=== PATIENT | male | born 1970 | race Caucasian/White ===

== ENCOUNTER 2017-09-13 07:54 | Emergency (ER) | payer MEDICAID ==
[~2017-09-13] VITALS: Ht 1653.8 cm; Wt 81.0 kg
[~2017-09-13 07:54] MED LIST: DIPH-423 PO; LURA120T PO; PRAZ5CAP PO; SERT25TA PO
[2017-09-13 08:47] LABS: BASOPHILS # (AUTO) 0.1 X10'3 (0-0.2); BASOPHILS % (AUTO) 0.8 % (0-1); EOSINOPHILS % (AUTO) 0.1 % (0-6); HEMATOCRIT 45.6 % (42.0-52.0); HEMOGLOBIN 15.8 g/dl (14.0-17.9); LYMPHOCYTES # (AUTO) 1.6 X10'3 (1.1-4.8); LYMPHOCYTES % (AUTO) 13.1 % (21-51); MEAN CORPUSCULAR HEMOGLOBIN 30.3 PG (27.0-31.0); MEAN CORPUSCULAR HGB CONC 34.6 % (33.0-36.5); MEAN CORPUSCULAR VOLUME 87.6 FL (78-98); MEAN PLATELET VOLUME 7.9 FL (7.4-10.4); MONOCYTES # (AUTO) 0.9 X10'3 (0-0.9); MONOCYTES % (AUTO) 7.7 % (2-12); NEUTROPHILS # (AUTO) 9.4 X10'3 (1.8-7.7); NEUTROPHILS % (AUTO) 78.3 % (42-75); PLATELET COUNT 354 X10'3 (140-440); RED BLOOD COUNT 5.21 X10'6 (4.70-6.10); RED CELL DISTRIBUTION WIDTH 13.9 % (11.5-14.5)
[2017-09-13 09:13] LABS: ALANINE AMINOTRANSFERASE 400 U/L (12-78); ALBUMIN 4.6 G/DL (3.4-5.0); ALBUMIN/GLOBULIN RATIO 1.1 (1.1-1.5); ALKALINE PHOSPHATASE 75 IU/L (46-116); ANION GAP 16 (8-16); ASPARTATE AMINO TRANSFERASE 1063 U/L (10-37); BILIRUBIN,TOTAL 2.2 MG/DL (0.1-1.0); BLOOD UREA NITROGEN 37 MG/DL (7-18); BUN/CREATININE RATIO 18.3 (5.4-32.0); CALCIUM 9.4 MG/DL (8.5-10.1); CHLORIDE 99 MMOL/L (99-107); CREATININE 2.02 MG/DL (0.60-1.10); ETHANOL < 0.010 GM/DL (0.0-0.010); GLUCOSE 111 MG/DL (70-104); POTASSIUM 3.7 MMOL/L (3.5-5.1); SODIUM 138 MMOL/L (135-145); TOTAL CARBON DIOXIDE 23.1 MMOL/L (24-32); TOTAL PROTEIN 8.9 G/DL (6.4-8.2); eGFR 36 ML/MIN
[2017-09-13 09:34] LABS: URINE AMPHETAMINE SCREEN POSITIVE (Neg); URINE BARBITUATE SCREEN NEGATIVE (Neg); URINE BENZODIAZEPINES SCREEN NEGATIVE (Neg); URINE CANNABINOID SCREEN NEGATIVE (Neg); URINE COCAINE SCREEN NEGATIVE (Neg); URINE METHADONE SCREEN NEGATIVE (Neg); URINE OPIATE SCREEN NEGATIVE (Neg); URINE PHENCYCLIDINE SCREEN NEGATIVE (Neg)
[2017-09-13] MEDS ORDERED: PRAZ1CAP5 PO (11:11)
[2017-09-13] MEDS: aspirin 81mg tab.chew PO PRN (13:29)
[2017-09-13] MEDS: olanzapine 10mg tablet PO SCH ×2 (13:30→19:46)
[2017-09-13] MEDS ORDERED: normal saline 1000ML IV soln IVB ONE (23:15)
[2017-09-14 02:25] LABS: BASOPHILS % (AUTO) 0.7 % (0-1); EOSINOPHILS # (AUTO) 0.1 X10'3 (0-0.9); HEMATOCRIT 37.3 % (42.0-52.0); HEMOGLOBIN 12.8 g/dl (14.0-17.9); LYMPHOCYTES # (AUTO) 1.6 X10'3 (1.1-4.8); LYMPHOCYTES % (AUTO) 32.8 % (21-51); MEAN CORPUSCULAR HEMOGLOBIN 30.4 PG (27.0-31.0); MEAN CORPUSCULAR HGB CONC 34.4 % (33.0-36.5); MEAN CORPUSCULAR VOLUME 88.5 FL (78-98); MEAN PLATELET VOLUME 7.8 FL (7.4-10.4); MONOCYTES # (AUTO) 0.4 X10'3 (0-0.9); MONOCYTES % (AUTO) 7.8 % (2-12); NEUTROPHILS # (AUTO) 2.7 X10'3 (1.8-7.7); NEUTROPHILS % (AUTO) 56.7 % (42-75); PLATELET COUNT 227 X10'3 (140-440); RED BLOOD COUNT 4.21 X10'6 (4.70-6.10); WHITE BLOOD COUNT 4.7 X10'3 (4.5-11.0)
[2017-09-14 02:37] LABS: ALANINE AMINOTRANSFERASE 276 U/L (12-78); ALKALINE PHOSPHATASE 50 IU/L (46-116); ANION GAP 7 (8-16); ASPARTATE AMINO TRANSFERASE 504 U/L (10-37); BILIRUBIN,TOTAL 1.1 MG/DL (0.1-1.0); BLOOD UREA NITROGEN 25 MG/DL (7-18); BUN/CREATININE RATIO 29.1 (5.4-32.0); CALCIUM 7.5 MG/DL (8.5-10.1); CHLORIDE 107 MMOL/L (99-107); CREATININE 0.86 MG/DL (0.60-1.10); GLUCOSE 103 MG/DL (70-104); POTASSIUM 3.3 MMOL/L (3.5-5.1); SODIUM 139 MMOL/L (135-145); TOTAL CARBON DIOXIDE 25.3 MMOL/L (24-32); TOTAL PROTEIN 6.1 G/DL (6.4-8.2); eGFR > 90 ML/MIN
[2017-09-14 02:47] LABS: ETHANOL < 0.010 GM/DL (0.0-0.010)
[2017-09-14] MEDS ORDERED: PRAZ1CAP5 PO (02:47)
[2017-09-14 02:52] LABS: ACETAMINOPHEN < 2.0 UG/ML (10-30)
[2017-09-14 08:15] LABS: ALANINE AMINOTRANSFERASE 282 U/L (12-78); ALBUMIN 3.1 G/DL (3.4-5.0); ALBUMIN/GLOBULIN RATIO 0.9 (1.1-1.5); ALKALINE PHOSPHATASE 59 IU/L (46-116); ASPARTATE AMINO TRANSFERASE 475 U/L (10-37); BILIRUBIN,DIRECT 0.2 MG/DL (0-0.3); BILIRUBIN,TOTAL 1.3 MG/DL (0.1-1.0); TOTAL PROTEIN 6.4 G/DL (6.4-8.2)
[2017-09-14] MEDS: olanzapine 10mg tablet PO SCH ×2 (08:51→20:23)
[2017-09-14 09:54] LABS: CLARITY,URINE CLEAR (Clear); COLOR,URINE YELLOW (Yellow); GLUCOSE, URINE NEGATIVE (Neg); KETONES,URINE 15 mg/dl (Neg); LEUKOCYTE ESTERASE ,URINE NEGATIVE (Neg); NITRITES, URINE NEGATIVE (Neg); OCCULT BLOOD,URINE MODERATE (Neg); PROTEIN,URINE 30 mg/dl (Neg); UROBILINOGEN,URINE 0.2 E.U/dL (0.2-1.0)
[2017-09-14 10:07] LABS: UA COLLECTION TYPE CLN CATCH MIDSTREAM
[2017-09-14 10:10] LABS: URINE AMPHETAMINE SCREEN POSITIVE (Neg); URINE BARBITUATE SCREEN NEGATIVE (Neg); URINE BENZODIAZEPINES SCREEN NEGATIVE (Neg); URINE CANNABINOID SCREEN NEGATIVE (Neg); URINE COCAINE SCREEN NEGATIVE (Neg); URINE METHADONE SCREEN NEGATIVE (Neg); URINE OPIATE SCREEN NEGATIVE (Neg); URINE PHENCYCLIDINE SCREEN NEGATIVE (Neg)
[2017-09-14 10:12] LABS: BACTERIA,URINE NONE SEEN /HPF (Neg); MUCUS STRANDS FEW /LPF (Neg); RBC,URINE NONE SEEN /HPF (0-2); SQUAMOUS EPITHELIAL CELL,UR NONE SEEN /LPF (FEW); WBC,URINE NONE SEEN /HPF (0-4)
[2017-09-14] MEDS ORDERED: prazosin 1mg capsule PO SCH (21:00)
[2017-09-15] MEDS: olanzapine 10mg tablet PO SCH (09:20)
[2017-09-15] MEDS: aspirin 81mg tab.chew PO PRN (17:21)
[2017-09-15 17:37] VITALS: BP 123/84
== END 2017-09-15 20:03 ==
LOC: ER 07:55
DX: F31.9 Bipolar disorder, unspecified (principal); F20.9 Schizophrenia, unspecified; R45.851 Suicidal ideations; R44.0 Auditory hallucinations; R51 Headache; Z59.0 Homelessness; Z56.0 Unemployment, unspecified; Z88.8 Allergy status to other drugs, medicaments and biological substances; Z88.5 Allergy status to narcotic agent; Z79.899 Other long term (current) drug therapy
CPT/HCPCS: 36415; 70450; 80053; 80076; 80305; 80320; 80329; 81001; 84443; 85025; 99285; J3490

== ENCOUNTER 2018-02-26 12:59 | Emergency (ER) | payer MEDICAID ==
[~2018-02-26] VITALS: Ht 165.1 cm; Wt 77.3 kg
[~2018-02-26 12:59] MED LIST changes: -DIPH-423 PO; -LURA120T PO; +PRAZ1CAP5 PO; -PRAZ5CAP PO; -SERT25TA PO
[2018-02-26 13:36] VITALS: BP 137/89
[2018-02-26] MEDS ORDERED: LIDOcaine 1.5% w/epinephrine 1:200,000 5ml ampul IJ ONE (16:00)
[2018-02-26] MEDS ORDERED: TETanus/Pertussis (Acell)/Diphther VAC/PF (Tdap-Adult) 0.5ml syringe IM ONE (16:00)
[2018-02-26] MEDS ORDERED: LIDOcaine 1% w/epiNEPHrine 1:200,000 30ml vial IJ ONE (16:05)
== END 2018-02-26 17:05 | disposition left against medical advice (07) ==
LOC: ER 12:59
DX: S61.411A Laceration without foreign body of right hand, initial encounter (principal); Z53.21 Procedure and treatment not carried out due to patient leaving prior to being seen by health care provider; W25.XXXA Contact with sharp glass, initial encounter; Y93.89 Activity, other specified; Y92.89 Other specified places as the place of occurrence of the external cause; Y99.9 Unspecified external cause status
CPT/HCPCS: 73130; J3490

== ENCOUNTER 2018-07-02 16:38 | Emergency (ER) | payer MEDICAID, OTHER ==
[~2018-07-02] VITALS: Ht 162.6 cm; Wt 75.0 kg
[2018-07-02 17:14] LABS: CLARITY,URINE SLIGHTLY CLOUDY (Clear); GLUCOSE, URINE NEGATIVE (Neg); KETONES,URINE 15 mg/dl (Neg); LEUKOCYTE ESTERASE ,URINE NEGATIVE (Neg); NITRITES, URINE NEGATIVE (Neg); OCCULT BLOOD,URINE NEGATIVE (Neg); PH,URINE 5.5 (4.8-8.0); PROTEIN,URINE 30 mg/dl (Neg)
--- NOTE | 2018-07-02 17:15 | NUR ---
Patient brought back by [employer] in handcuffs. Found outdoors wandering, stating he wanted to kill himself because he was "a bad person." Taken out of handcuffs, dressed himself in green gowns, and went to bed. Unable to participate in the admission process at this time due to psychosis and paranoia.
[2018-07-02 17:24] LABS: URINE AMPHETAMINE SCREEN POSITIVE (Neg); URINE BARBITUATE SCREEN NEGATIVE (Neg); URINE BENZODIAZEPINES SCREEN NEGATIVE (Neg); URINE CANNABINOID SCREEN NEGATIVE (Neg); URINE COCAINE SCREEN NEGATIVE (Neg); URINE METHADONE SCREEN NEGATIVE (Neg); URINE OPIATE SCREEN NEGATIVE (Neg); URINE PHENCYCLIDINE SCREEN NEGATIVE (Neg)
[2018-07-02 17:26] LABS: COLOR,URINE DARK YELLOW (Yellow); UA COLLECTION TYPE VOIDED
[2018-07-02 17:29] LABS: WBC,URINE 0-4 /HPF (0-4)
[2018-07-02 17:38] LABS: BASOPHILS # (AUTO) 0.1 X10'3 (0-0.2); EOSINOPHILS # (AUTO) 0.1 X10'3 (0-0.9); EOSINOPHILS % (AUTO) 2.1 % (0-6); HEMATOCRIT 41.6 % (42.0-52.0); HEMOGLOBIN 14.5 g/dl (14.0-17.9); LYMPHOCYTES # (AUTO) 1.4 X10'3 (1.1-4.8); LYMPHOCYTES % (AUTO) 21.9 % (21-51); MEAN CORPUSCULAR HEMOGLOBIN 30.1 PG (27.0-31.0); MEAN CORPUSCULAR HGB CONC 34.9 g/dL (33.0-36.5); MEAN CORPUSCULAR VOLUME 86.4 FL (78-98); MEAN PLATELET VOLUME 7.3 FL (7.4-10.4); MONOCYTES # (AUTO) 0.6 X10'3 (0-0.9); MONOCYTES % (AUTO) 9.5 % (2-12); NEUTROPHILS # (AUTO) 4.1 X10'3 (1.8-7.7); NEUTROPHILS % (AUTO) 65.5 % (42-75); PLATELET COUNT 378 X10'3 (140-440); RED BLOOD COUNT 4.81 X10'6 (4.70-6.10); RED CELL DISTRIBUTION WIDTH 13.2 % (11.5-14.5); WHITE BLOOD COUNT 6.3 X10'3 (4.5-11.0)
[2018-07-02 17:55] LABS: ALANINE AMINOTRANSFERASE 68 U/L (12-78); ALBUMIN 4.1 G/DL (3.4-5.0); ALBUMIN/GLOBULIN RATIO 1.1 (1.1-1.5); ALKALINE PHOSPHATASE 61 IU/L (46-116); ANION GAP 9 (8-16); ASPARTATE AMINO TRANSFERASE 26 U/L (10-37); BILIRUBIN,TOTAL 0.9 MG/DL (0.1-1.0); BLOOD UREA NITROGEN 15 MG/DL (7-18); BUN/CREATININE RATIO 14.3 (5.4-32.0); CALCIUM 9.1 MG/DL (8.5-10.1); CHLORIDE 104 MMOL/L (99-107); CREATININE 1.05 MG/DL (0.60-1.10); GLUCOSE 117 MG/DL (70-104); SODIUM 141 MMOL/L (135-145); TOTAL CARBON DIOXIDE 28.3 MMOL/L (24-32); TOTAL PROTEIN 7.7 G/DL (6.4-8.2); eGFR 76 ML/MIN
[2018-07-02 17:59] LABS: AMORPHOUS URATES 3+; BACTERIA,URINE NONE SEEN /HPF (Neg); MUCUS STRANDS MANY /LPF (Neg); RBC,URINE NONE SEEN /HPF (0-2); SQUAMOUS EPITHELIAL CELL,UR FEW /LPF (FEW)
[2018-07-02] MEDS ORDERED: potassium Cl oral solution 20 MEQ/15 ML PO ONE (18:00)
--- NOTE | 2018-07-02 18:00 | NUR ---
CRITICAL LAB REPORTED. K+ = 3.0. Oncoming nurse reported lab to Carla Howard, will put in orders.
[2018-07-02 18:02] LABS: ETHANOL < 0.010 GM/DL (0.0-0.010)
--- NOTE | 2018-07-02 19:23 | NUR ---
The patient is sitting on his bed talking to himself. He is disorganized and confused. He really is not endorsing suicidal intent. He mumbles and is very difficult to understand. Per [employer] they picked him up after he was acting erratic, altered and being uncooperative. His urine tox screen was postive for amphetamines. [facility] has seen the patient but because he is currently under the influence and difficult to fully assess. They will reevaluate him in the morning when his mentation is clearer.
--- NOTE | 2018-07-02 21:40 | NUR ---
telepsych consult made
--- NOTE | 2018-07-02 23:24 | NUR ---
The patient appears to be sleeping. Telepsych is still pending
--- NOTE | 2018-07-03 01:32 | NUR ---
Report to telepsychiatrist. THe patient is very drowsy and difficult to arouse
[2018-07-03] MEDS ORDERED: OLANZapine **IM** 10 mg inj. IM PRN (02:30)
[2018-07-03] MEDS ORDERED: OLANZapine 2.5MG tablet PO PRN (02:30)
--- NOTE | 2018-07-03 03:10 | NUR ---
The patient appears to be asleep
--- NOTE | 2018-07-03 05:20 | NUR ---
The patient appears to be asleep
[2018-07-03 05:49] VITALS: BP 132/80
--- NOTE | 2018-07-03 12:12 | NUR ---
PT IS IN BED ON LEFT SIDE, EYES CLOSED, REGULAR BREATHING, NO S/S OF AGITATION OBERVED, A
--- NOTE | 2018-07-03 13:10 | NUR ---
PT IS BEING DISCHARGED. NO S/S OF AGITATION, HE IS GETTING DRESSED
== END 2018-07-03 13:29 ==
LOC: ER 16:39
DX: F20.9 Schizophrenia, unspecified (principal); F29 Unspecified psychosis not due to a substance or known physiological condition; F31.9 Bipolar disorder, unspecified; F15.10 Other stimulant abuse, uncomplicated; Z59.0 Homelessness; Z56.0 Unemployment, unspecified; Z88.8 Allergy status to other drugs, medicaments and biological substances; Z88.5 Allergy status to narcotic agent; Z79.899 Other long term (current) drug therapy
CPT/HCPCS: 36415; 80053; 80305; 80320; 81001; 84443; 85025; 99285

== ENCOUNTER 2020-10-11 19:28 | Emergency (ER) | payer MEDICAID ==
[~2020-10-11] VITALS: Ht 162.6 cm; Wt 90.0 kg
[~2020-10-11 19:28] MED LIST changes: +AMLO2.5T5 PO; +ATOR20TA66 PO; +COR3.125T PO; +DIPH-1055 PO; +DIVA125T9 PO; +FAMO20TA10 PO; +ILOP6TAB2 PO; +ISOS30TA84 PO; +LISI40TA13 PO; +PANT40TA54 PO; +QUET400T13 PO; +QUET50TA79 PO; +folic acid tablet PO; +thiamine tablet PO
[2020-10-11] MEDS ORDERED: aspirin 81mg tab.chew PO ONE (19:35)
[2020-10-11] MEDS ORDERED: magnesium 2GM in 50ml NS 50 ML IV ONE (19:35)
[2020-10-11] MEDS ORDERED: normal saline 1000ML IV soln IVB ONE ×2 (19:35→20:55)
[2020-10-11 19:49] LABS: BASOPHILS % (AUTO) 0.3 % (0-1); EOSINOPHILS % (AUTO) 0 % (0-6); HEMATOCRIT 43.6 % (42.0-52.0); HEMOGLOBIN 14.7 g/dl (14.0-17.9); LYMPHOCYTES % (AUTO) 9.8 % (21-51); MEAN CORPUSCULAR HEMOGLOBIN 28.9 PG (27.0-31.0); MEAN CORPUSCULAR HGB CONC 33.8 g/dL (33.0-36.5); MEAN CORPUSCULAR VOLUME 85.4 FL (78-98); MEAN PLATELET VOLUME 6.9 FL (7.4-10.4); MONOCYTES # (AUTO) 0.7 X10'3 (0-0.9); NEUTROPHILS # (AUTO) 8.7 X10'3 (1.8-7.7); NEUTROPHILS % (AUTO) 82.9 % (42-75); PLATELET COUNT 343 X10'3 (140-440); RED CELL DISTRIBUTION WIDTH 14.5 % (11.5-14.5); WHITE BLOOD COUNT 10.5 X10'3 (4.5-11.0)
--- NOTE | 2020-10-11 19:57 | NUR ---
2723 written for DTS by police per EMS. Urmila Turner [phone], ok to give any medical information to her. Pt reports he lives with his neice and she is aware he is here tonight. States he wanted to kill himself and he took a pill from a friend , but does not know what it was, and he then smoked "a hot rail". 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 Drinks etoh daily. last had beer this afternoon. Has extensive psych and SA history and inpatient psych admissions. Reports severely depressed recently. States CP and SOB increasing over the past week but tonight symptoms severe after taking the pill and the hot rail. Seen by [facility] and goes to [facility] "Dr. Mathews" for PCP. Has current meds he is supposed to be taking , but does not know them. States his sister would know. States he still wants to and he is severely depressed.
[2020-10-11 20:05] LABS: ALANINE AMINOTRANSFERASE 33 U/L (12-78); ALKALINE PHOSPHATASE 108 IU/L (46-116); ANION GAP 14 (8-16); ASPARTATE AMINO TRANSFERASE 19 U/L (10-37); BILIRUBIN,TOTAL 1.2 MG/DL (0.1-1.0); BLOOD UREA NITROGEN 17 MG/DL (7-18); BUN/CREATININE RATIO 13.1 (5.4-32.0); CALCIUM 8.7 MG/DL (8.5-10.1); CHLORIDE 106 MMOL/L (99-107); GLUCOSE 167 MG/DL (70-104); POTASSIUM 3.4 MMOL/L (3.5-5.1); SODIUM 145 MMOL/L (135-145); TOTAL CARBON DIOXIDE 25.1 MMOL/L (24-32); TOTAL PROTEIN 8.1 G/DL (6.4-8.2); eGFR 59 ML/MIN
[2020-10-11 20:12] LABS: LIPASE 52 U/L (73-393)
[2020-10-11 20:13] LABS: ETHANOL < 0.010 GM/DL (0.0-0.010)
[2020-10-11] MEDS ORDERED: LORazepam 2 mg/ml vial IV ONE ×2 (20:55→23:00)
[2020-10-11 21:33] LABS: CLARITY,URINE CLEAR (Clear); COLOR,URINE YELLOW (Yellow); GLUCOSE, URINE 100 mg/dl (Neg); KETONES,URINE NEGATIVE (Neg); LEUKOCYTE ESTERASE ,URINE NEGATIVE (Neg); NITRITES, URINE NEGATIVE (Neg); OCCULT BLOOD,URINE TRACE-INTACT (Neg); PROTEIN,URINE 100 mg/dl (Neg); UROBILINOGEN,URINE 0.2 E.U/dL (0.2-1.0)
[2020-10-11 21:39] LABS: URINE AMPHETAMINE SCREEN POSITIVE (Neg); URINE BARBITUATE SCREEN NEGATIVE (Neg); URINE BENZODIAZEPINES SCREEN NEGATIVE (Neg); URINE CANNABINOID SCREEN NEGATIVE (Neg); URINE COCAINE SCREEN NEGATIVE (Neg); URINE METHADONE SCREEN NEGATIVE (Neg); URINE OPIATE SCREEN NEGATIVE (Neg); URINE PHENCYCLIDINE SCREEN NEGATIVE (Neg)
--- NOTE | 2020-10-11 21:42 | NUR ---
given ativan 2 mg iv and 3rd liter ns bolus infusing. hr 130's. Pt paranoid and thinks many people walking by his room , especially in uniform , are "following me" and "trying to kill me". "i want to kill myself, i dont want them to do it". Pt assured that he is safe here and encouraged to lay on the gurney and try to calm down. Pt called his sister, Urmila, and I also spoke with her and updated he-r on his plan of care. She provided me with her daughters number (his neice whom he lievs with bruno -[phone]) and she will be able to provide me with the pts current list of medications. Pt showed me his cardiac stent card showing he had proximal LAD stent placed.
[2020-10-11 21:44] LABS: UA COLLECTION TYPE VOIDED
[2020-10-11 21:47] LABS: BACTERIA,URINE NONE SEEN /HPF (Neg); MUCUS STRANDS FEW /LPF (Neg); RBC,URINE NONE SEEN /HPF (0-2); SQUAMOUS EPITHELIAL CELL,UR FEW /LPF (FEW); WBC,URINE NONE SEEN /HPF (0-4)
--- NOTE | 2020-10-11 21:53 | NUR ---
Call placed to Whitney valle, and message left for her to call with med list.
[2020-10-11] MEDS ORDERED: CLOP75TA33 PO (22:11)
[2020-10-11] MEDS ORDERED: ASPI-107 PO (22:11)
[2020-10-11] MEDS ORDERED: LAMO150T6 PO (22:11)
[2020-10-11] MEDS ORDERED: ISOS60TA71 PO (22:11)
[2020-10-11] MEDS ORDERED: UNABLE TO OBTAIN (22:15)
--- NOTE | 2020-10-11 22:39 | NUR ---
CHANGED INTO GREEN SCRUBS. [facility] VIRUS SWAB PENDING.
--- NOTE | 2020-10-11 22:57 | NUR ---
DR. HAAS UPDATED THAT PTS HR REMAINS 130-140. PT WAS TO BE MOVED OVER THE OVERFLOW AREA. VERBAL RECEIVED FOR ATIVAN 1 MG IV X1 NOW. AND TO WAIT UNTIL HR IN AT LEAST 120'S BEFORE MOVING OVER.
--- NOTE | 2020-10-11 23:30 | NUR ---
The patient to bed 23 in the ER overflow. Per Dr. Roberts serial trops and ecgs can be cancelled
--- NOTE | 2020-10-11 23:34 | NUR ---
Packet to [facility]
--- NOTE | 2020-10-11 23:52 | NUR ---
The patient is disorganized but is resting on his bed
--- NOTE | 2020-10-12 00:02 | NUR ---
Pt broke his own reading glasses while he was dreaming
--- NOTE | 2020-10-12 01:23 | NUR ---
The patient appears to be sleeping but restlessly
--- NOTE | 2020-10-12 03:13 | NUR ---
THe patient appears to be sleeping
--- NOTE | 2020-10-12 04:57 | NUR ---
The patient appears to be sleeping
[2020-10-12] MEDS ORDERED: LORazepam 1 MG tablet PO ONE (06:30)
[2020-10-12] MEDS ORDERED: ibuprofen tablet 400 MG TABLET PO ONE (06:30)
--- NOTE | 2020-10-12 06:54 | NUR ---
pt complaining of back pain, requested aspirin and something for anxiety. pt given 1 mg ativan and 400 mg motrin. pt up to use restroom. pt requires stand by assist due to unsteady gait.
[2020-10-12] MEDS ORDERED: DIAZ2TAB PO (08:28)
[2020-10-12] MEDS ORDERED: QUET-1 PO (08:29)
[2020-10-12] MEDS ORDERED: AMLO10TA PO (08:30)
[2020-10-12] MEDS ORDERED: ATOR20TA66 PO (08:31)
[2020-10-12] MEDS ORDERED: CARV-50 PO (08:31)
--- NOTE | 2020-10-12 08:49 | NUR ---
leonard Olson: [phone]
[2020-10-12] MEDS ORDERED: diazepam 2mg tablet PO SCH (09:00)
[2020-10-12] MEDS ORDERED: carVEDilol 12.5mg tablet PO SCH (09:24)
[2020-10-12] MEDS ORDERED: amLODIPine 5mg tablet PO SCH (09:24)
[2020-10-12] MEDS ORDERED: atorvastatin 20mg tablet PO SCH (09:24)
[2020-10-12] MEDS ORDERED: clopidogrel 75mg tablet PO SCH (09:25)
[2020-10-12] MEDS ORDERED: lamoTRIgine 25mg tablet PO SCH (09:25)
[2020-10-12] MEDS ORDERED: isosorbide mononitrate 30mg tab.SR.24H PO SCH (09:25)
[2020-10-12] MEDS ORDERED: aspirin 81mg tablet.DR PO SCH (09:25)
[2020-10-12] MEDS ORDERED: lamoTRIgine 100mg tablet PO SCH (09:26)
[2020-10-12] MEDS ORDERED: pantoprazole 40mg Tablet.DR PO SCH (09:26)
--- NOTE | 2020-10-12 10:11 | NUR ---
spoke to poison control about the unknown pill that the patient took. They suggest a repeat cmp and supportive care. "If patient isn't showing signs of overdose, patient is most likely out of danger."
[2020-10-12 10:31] LABS: ACETAMINOPHEN < 2.0 UG/ML (10-30)
--- NOTE | 2020-10-12 10:49 | NUR ---
pt is being examined by hospitalist now.
[2020-10-12] MEDS ORDERED: potassium Cl 40MEQ/250ML bag 250 ML IV PRN (11:00)
[2020-10-12] MEDS ORDERED: potassium CL 10mEq/100ml bag 100 ML IV PRN (11:00)
[2020-10-12] MEDS ORDERED: magnesium hydroxide 30ml (MOM) UD suspension PO PRN (11:00)
[2020-10-12] MEDS ORDERED: HYDROcodone/acetaminophen 5mg/325mg tablet PO PRN (11:00)
[2020-10-12] MEDS ORDERED: ondansetron/PF 4mg/2ml inj IV PRN (11:00)
[2020-10-12] MEDS ORDERED: magnesium 4gm in 100ml NS 100 ML IV PRN (11:00)
[2020-10-12] MEDS ORDERED: HYDROcodone/acetaminophen 10/325mg tab PO PRN (11:00)
[2020-10-12] MEDS ORDERED: magnesium 2GM in 50ml NS 50 ML IV PRN (11:00)
[2020-10-12] MEDS ORDERED: mag hydrox/Alum hydrox/simeth 30ml oral suspension PO PRN (11:00)
[2020-10-12] MEDS ORDERED: normal saline 1000ml 1,000 ML IV SCH (11:00)
[2020-10-12] MEDS ORDERED: acetaminophen 325mg tablet PO PRN ×2 (11:00)
[2020-10-12] MEDS ORDERED: potassium Cl 20mEq/100mL bag 100 ML IV PRN (11:00)
[2020-10-12] MEDS ORDERED: potassium Cl 40MEQ/1/2NS 520ml 520 ML IV PRN (11:00)
[2020-10-12] MEDS ORDERED: potassium Cl 20 mEq SR tablet PO PRN (11:00)
--- NOTE | 2020-10-12 12:01 | NUR ---
pt is paranoid, keeps checking underneath beds and behind nurses station. pt believes people are out to get him.
[2020-10-12] MEDS ORDERED: diphenhydrAMINE 25mg capsule PO SCH (13:00)
--- NOTE | 2020-10-12 13:40 | NUR ---
pt is having visual hallucinations, will not stop coming behind nurses station. pt is paranoid, stating, "I got to get out of here!" Pt believes he is in danger, people are here to hurt him.
[2020-10-12] MEDS ORDERED: LORazepam 2 mg/ml vial IV ONE (13:50)
[2020-10-12 15:47] VITALS: BP 135/93
--- NOTE | 2020-10-12 16:10 | NUR ---
[facility] worker was speaking with pt and pt became more paranoid and aggitated and eloped hospital. Security notified and is currently in pursuit of pt.
--- NOTE | 2020-10-12 16:15 | NUR ---
Around time of 1614 Kary notified and reported elopement of [id number]. Received case/report number: [id number]
--- NOTE | 2020-10-12 16:40 | NUR ---
ship unloader Kelly and ED MD Swain informed pt eloped
[2020-10-12] MEDS ORDERED: docusate sod 100mg capsule PO SCH (20:00)
[2020-10-12] MEDS ORDERED: quetiapine 100mg tablet PO SCH (21:00)
== END 2020-10-12 16:40 | disposition left against medical advice (07) ==
LOC: ER 19:28 → ED HOLD 10-12 11:06 → UNDOADMOB 10-12 11:06 → UNDODISOB 10-12 16:40
DX: T14.91XA Suicide attempt, initial encounter (principal); T65.92XA Toxic effect of unspecified substance, intentional self-harm, initial encounter; Z20.822 Contact with and (suspected) exposure to COVID-19; R94.31 Abnormal electrocardiogram [ECG] [EKG]; G93.41 Metabolic encephalopathy; F15.10 Other stimulant abuse, uncomplicated; F23 Brief psychotic disorder; F31.9 Bipolar disorder, unspecified; Z72.89 Other problems related to lifestyle; Z56.0 Unemployment, unspecified; Z59.0 Homelessness; Z88.6 Allergy status to analgesic agent; Z88.8 Allergy status to other drugs, medicaments and biological substances; Z79.82 Long term (current) use of aspirin; Z79.899 Other long term (current) drug therapy; X83.8XXA Intentional self-harm by other specified means, initial encounter; Y93.89 Activity, other specified; Y92.89 Other specified places as the place of occurrence of the external cause; Y99.8 Other external cause status
CPT/HCPCS: 36415; 71045; 80053; 80305; 80320; 80329; 81001; 83690; 83735; 83880; 84484; 85025; 87081; 87635; 93005; 96374; 96375; 96376; 99285; C9803; J2060; J3475; J7030; Q0163; 96361